=== PATIENT | male | born 1975 | race Caucasian/White ===

== ENCOUNTER 2018-02-05 18:38 | Emergency (ER) | payer SELFPAY ==
[2018-02-05 18:41] VITALS: BP 158/107
--- NOTE | 2018-02-05 18:47 | ER Report ---
History and Physical Time Seen By MD: 18:47 Hx. of Stated Complaint: PT ADEN FOR SNF CLEARANCE FOR DUI HPI/ROS CHIEF COMPLAINT: Alf clearance, DUI HISTORY OF PRESENT ILLNESS: 42-year-old male brought in by [facility] fpc clearance. Patient was picked up DUI. He admits to numerous alcoholic beverages. Patient denies any past medical history except for hypertension and being in handcuffs. Patient denies head trauma, neck pain, chest pain, shortness of breath. Patient denies other drug use. Patient is a small abrasion on his right lower foot. He states his last tetanus shot was one year ago. REVIEW OF SYSTEMS: Respiratory: No cough, no dyspnea. Cardiovascular: No chest pain, no palpitations. Gastrointestinal: No vomiting, no abdominal pain. Musculoskeletal: No back pain. Allergies: Uncoded Allergies: SOME DRUGS (Adverse Reaction, Intermediate, 02/05/18) Home Meds Reported Medications Metoprolol Tartrate (METOPROLOL TARTRATE) 25 Mg Tablet, 1 TAB PO BID, TAB 02/05/18 Atorvastatin Calcium (LIPITOR) 20 Mg Tablet, 1 TAB PO QDAY, TAB 02/05/18 Lorazepam (LORAZEPAM) 1 Mg Tab, TID, TAB 02/05/18 Reviewed Nurses Notes: Yes Old Medical Records Reviewed: Yes Constitutional Vital Sign - Last 24 Hours 02/05/18 18:41 Pulse 121 Resp 22 B/P (MAP) 158/107 Pulse Ox 93 O2 Delivery Room Air Physical Exam General Appearance: The patient is alert, has no immediate need for airway protection and no current signs of toxicity. Palpation of the head and neck reveal no tenderness or trauma HEENT: Pupils equal and round no injection. Oropharynx without redness or exudate, because members are moist, no dental trauma Respiratory: Chest is non tender, lungs are clear to auscultation. No chest wall tenderness Cardiac: regular rate and rhythm Gastrointestinal: Abdomen is soft and non tender, no masses, bowel sounds normal. Musculoskeletal: Neck: Neck is supple and non tender. Extremities have full range of motion and are non tender. Skin: No rashes or lesions. DIFFERENTIAL DIAGNOSIS: After history and physical exam differential diagnosis was considered for alcohol intoxication, fpc clearance, polysubstance abuse Medical Decision Making ED Course/Re-evaluation ED Course Patient was minute to an examination room. H&P was done. The differential diagnoses was considered. On clinical examination. Patient has no medical findings. His vital signs are stable. Patient's medically cleared for fpc admission. Decision to Disposition Date: Feb 05, 2018 Decision to Disposition Time: 18:52 Depart Departure Latest Vital Signs Vital Signs Date Time Temp Pulse Resp B/P (MAP) Pulse Ox O2 Delivery O2 Flow Rate FiO2 02/05/18 18:41 121 22 158/107 93 Room Air Impression: Primary Impression: Medical clearance for incarceration Additional Impressions: Alcohol intoxication Abrasion, right foot, initial encounter Condition: Improved Disposition: [facility] TO SNF/CORRECTIONAL F Patient Instructions: Alcohol Intoxication (ED) Additional Instructions: Patient is medically cleared for fpc admission Problem Qualifiers Additional Impressions: Alcohol intoxication Complication of substance-induced condition: uncomplicated Qualified Codes: F10.920 - Alcohol use, unspecified with intoxication, uncomplicated MAYRA BLAKE DO Feb 05, 2018 18:47
[2018-02-05] MEDS ORDERED: ATOR20TA22 PO (18:48)
[2018-02-05] MEDS ORDERED: METO25TA93 PO (18:48)
[2018-02-05] MEDS ORDERED: LOR1 (18:48)
== END 2018-02-05 18:56 | disposition home or self-care (01) ==
LOC: ER 18:55
DX: F10.920 Alcohol use, unspecified with intoxication, uncomplicated (principal); S90.811A Abrasion, right foot, initial encounter
CPT/HCPCS: 99281